=== PATIENT | female | born 1965 | race Caucasian/White ===

== ENCOUNTER 2016-10-23 03:57 | Emergency (ER) | payer OTHER ==
[~2016-10-23] VITALS: Ht 170.2 cm; Wt 87.0 kg
[~2016-10-23 03:57] MED LIST: HYDR-3580 PO; MOBI15TA PO; TAB-TAB PO
[2016-10-23 04:00] VITALS: BP 176/99; PULSE 142; RESP 16; TEMP 97.7; O2SAT 100
[2016-10-23 04:20] VITALS: BP 133/91; PULSE 114; RESP 22; TEMP 98.5; O2SAT 100
--- NOTE | 2016-10-23 04:22 | PD ---
HPI Chief Complaint: Cardiac Complaint Time Seen by Provider: 04:22 Travel History International Travel<30 days: No Contact w/Intl Traveler<30days: No Traveled to known affect area: No History of Present Illness HPI 51-year-old female came to the emergency room with history of palpitations that woke her up at 3:30 this morning. Patient seems anxious. She says she has had palpitations in the past which never lasted for to long. This time it has been the worst in lasted the longest and that's why she came to the emergency room. No history of chest pain, shortness of or any syncopal episode. No history of dizziness. Patient had a heart rate in her 120s to 130s. She does not drink alcohol, smoke cigarettes or any [id number] medication for cough and/or sinus. However she does take a lot of herbal supplements. PFSH Past Medical History Narrative Medical List of her past medical, surgical, social and family history was reviewed from the nursing note. Autoimmune Disease: Yes (Adam Kern) Cancer: No Cardiovascular Problems: No Diabetes: No Diminished Hearing: Yes (EARS ECHO) Endocrine: No Fibromyalgia: Yes Gastrointestinal Disorders: Yes (NAUSEA) Glaucoma: No Genitourinary: No Hepatitis: No Hiatal Hernia: No Hypertension: No Immune Disorder: No Medical other: Yes (BACK/NECK PROBLEMS, ARTHRITIS, PROBLEMS WITH NAUSEA/ VOMITTING) Musculoskeletal: Yes (ARTHRITIS, FIBROM., ) Neurologic: Yes (BACK AND NECK, Chronic fatique) Psychiatric: No Respiratory: Yes (HX PNEUMONIA) Immunizations Current: Yes Thyroid Disease: No Tetanus Vaccination: > 5 Years Influenza Vaccination: No ?: Not Menopausal: Yes Past Surgical History Abdominal Surgery: No Cardiac Surgery: No Ear Surgery: No Endocrine Surgery: No Eye Surgery: No Genitourinary Surgery: No Gynecologic Surgery: Yes (ENDOMETRIAL ABLATION) Neurologic Surgery: Yes (C6-C7 fusion, C7-T1 fusion, degenerative Disc) Oral Surgery: Yes (WISDOM TEETH EXTRACTION) Pacemaker: No Thoracic Surgery: Yes (cervicle discectomy w/ screws) Other Surgery: Yes Social History Alcohol Use: Yes (WINE SOME TIMES) Tobacco Use: No Substance Use: No Allergies-Medications (Allergen,Severity, Reaction): Coded Allergies: penicillin G (Unverified Allergy, Severe, Hives, 10/21/16) antioxidant multivitamin no.5 (Verified Adverse Reaction, Severe, Nausea/ Vomiting, 10/23/16) chondroitin sulfate A (Verified Adverse Reaction, Severe, Nausea/Vomiting , 10/23/16) glucosamine (Verified Adverse Reaction, Severe, Nausea/Vomiting, 10/23/16) Comments List of her allergies reviewed from the nursing note. Reported Meds & Prescriptions Reported Meds & Active Scripts Active Cardizem CD 24 HR (Diltiazem CD 24 HR) 120 Mg Caper 120 Mg PO DAILY Reported Hydrocodone-Acetaminophen 7.5-325 mg Tab 1 Tab PO Q6H PRN Stool Softener (Docusate Sodium) 100 Mg Cap Unknown Dose PO HS Fibercon (Calcium Polycarbophil) 625 Mg Tab 1,250 Mg PO HS Melatonin 1 Mg Tablet 6 Mg PO HS [iodine supplement] Unknown Dose PO HS [curamin] Unknown Dose PO HS Probiotic (Lactobacillus Acidophilus) 1 Cap Cap 1 Cap PO DAILY [steel labido] Unknown Dose PO DAILY [menosense] Unknown Dose PO BID [iodine supplement] Unknown Dose PO DAILY [curamin] Unknown Dose PO DAILY Fish Oil (Five Points-3 Fatty Acids) 1,000 Mg Cap Unknown Dose PO DAILY Narrative Medication List of her home medications reviewed from the nursing note. Review of Systems Except as stated in HPI: all other systems reviewed are Neg Physical Exam Narrative GENERAL: Awake, alert, anxious, moderate distress SKIN: Focused skin assessment warm/dry. Pale HEAD: Atraumatic. Normocephalic. EYES: Pupils equal and round. No scleral icterus. No injection or drainage. ENT: No nasal bleeding or discharge. Mucous membranes pink and moist. NECK: Trachea midline. No JVD. CARDIOVASCULAR: Irregularly irregular heart rate, tachycardia. No murmur appreciated. RESPIRATORY: No accessory muscle use. Clear to auscultation. Breath sounds equal bilaterally. GASTROINTESTINAL: Abdomen soft, non-tender, nondistended. Hepatic and splenic margins not palpable. MUSCULOSKELETAL: No obvious deformities. No clubbing. No cyanosis. No edema. NEUROLOGICAL: Awake and alert. No obvious cranial nerve deficits. Motor grossly within normal limits. Normal speech. PSYCHIATRIC: Appropriate mood and affect; insight and judgment normal. Data Data Last Documented VS Vital Signs Date Time Temp Pulse Resp B/P (MAP) Pulse Ox O2 Delivery O2 Flow Rate FiO2 10/23/16 05:15 67 16 127/88 (101) 100 Room Air 10/23/16 04:20 98.5 Orders Orders Electrocardiogram (10/23/16 04:26) Basic Metabolic Panel (Bmp) (10/23/16 04:26) Ckmb (Isoenzyme) Profile (10/23/16 04:26) Complete Blood Count With Diff (10/23/16 04:26) Magnesium (Mg) (10/23/16 04:26) Prothrombin Time / Inr (Pt) (10/23/16 04:26) Act Partial Throm Time (Ptt) (10/23/16 04:26) Troponin I (10/23/16 04:26) Chest, Single Ap (10/23/16 04:26) Ecg Monitoring (10/23/16 04:26) Bilateral Bp Monitoring (10/23/16 04:26) Iv Access Insert/Monitor (10/23/16 04:26) Oximetry (10/23/16 04:26) Oxygen Administration (10/23/16 04:26) Sodium Chloride 0.9% Flush (Ns Flush) (10/23/16 04:30) Thyroid Stimulating Hormone (10/23/16 04:26) Vital Signs (Adult) Q15MX4,Q4H (10/23/16 04:26) Pharmacist Aide / Telemetry CHARLIE.Q8H (10/23/16 04:26) Cardiac Rhythm CHARLIE.Q8H (10/23/16 04:26) Notify Dr: Other (10/23/16 04:26) Diltiazem Inj (Cardizem Inj) (10/23/16 04:30) Diltiazem Inj (Cardizem Inj) (10/23/16 04:30) Diltiazem (Cardizem) (10/23/16 05:00) Electrocardiogram (10/23/16 ) Labs Laboratory Tests Test 10/23/16 04:25 White Blood Count 10.2 TH/MM3 Red Blood Count 4.58 MIL/MM3 Hemoglobin 14.4 GM/DL Hematocrit 42.5 % Mean Corpuscular Volume 92.8 FL Mean Corpuscular Hemoglobin 31.4 PG Mean Corpuscular Hemoglobin Concent 33.8 % Red Cell Distribution Width 12.6 % Platelet Count 225 TH/MM3 Mean Platelet Volume 10.2 FL Neutrophils (%) (Auto) 46.8 % Lymphocytes (%) (Auto) 42.4 % Monocytes (%) (Auto) 8.2 % Eosinophils (%) (Auto) 2.0 % Basophils (%) (Auto) 0.6 % Neutrophils # (Auto) 4.8 TH/MM3 Lymphocytes # (Auto) 4.3 TH/MM3 Monocytes # (Auto) 0.8 TH/MM3 Eosinophils # (Auto) 0.2 TH/MM3 Basophils # (Auto) 0.1 TH/MM3 CBC Comment DIFF FINAL Differential Comment Prothrombin Time 10.2 SEC Prothromb Time International Ratio 0.9 RATIO Activated Partial Thromboplast Time 28.7 SEC Blood Urea Nitrogen 23 MG/DL Creatinine 0.69 MG/DL Random Glucose 94 MG/DL Calcium Level 9.4 MG/DL Magnesium Level 2.3 MG/DL Sodium Level 140 MEQ/L Potassium Level 4.2 MEQ/L Chloride Level 104 MEQ/L Carbon Dioxide Level 27.1 MEQ/L Anion Gap 9 MEQ/L Estimat Glomerular Filtration Rate 89 ML/MIN Total Creatine Kinase 89 U/L Troponin I LESS THAN 0.02 NG/ML Thyroid Stimulating Hormone 3rd Gen 2.780 uIU/ML MDM Medical Decision Making Medical Screen Exam Complete: Yes Emergency Medical Condition: Yes Medical Record Reviewed: Yes Interpretation(s) Twelve-lead EKG was reviewed by me. Atrial fibrillation, normal axis, RVR. Heart rate of 126 beats per minutes. Differential Diagnosis He wants it A. fib, ACS, hypothyroidism, electrolyte abnormalities Narrative Course 5:02 AM patient was given 20 mg of IV Cardizem bolus. Currently her heart rate is in the 70s. I've asked for repeat EKG to look at the rhythm. I have also ordered by mouth Cardizem. Blood test results are pending. 5:05 AM the repeat EKG shows a normal sinus rhythm, normal axis, nonspecific ST- T wave changes. Heart rate of 67 bpm. 5:36 AM all the blood test results of back and within normal limit. I will discharge her home on Cardizem. Procedures EKG Prior to Arrival: No Diagnosis Primary Impression: Paroxysmal atrial fibrillation Referrals: Primary Care Physician 2 days Additional Instructions: Please call your statistical reporting analyst to make an appointment with the next 2 days. Take the medication as per the prescription direction. Please return to the ER if the condition worsens or any other new concerns. Do not drink alcohol, caffeinated beverages, [id number] medications that are stimulants like allergy and sinus pills or smoke cigarettes. Med/Other Pt SpecificInfo: Prescription(s) given Scripts Diltiazem CD 24 HR (Cardizem CD 24 HR) 120 Mg Caper 120 MG PO DAILY, #30 CAP 0 Refills Prov: Karla Gerard MD 10/23/16 Disposition: 01 DISCHARGE HOME Condition: Stable Karla Gerard MD Oct 23, 2016 04:22
[2016-10-23] MEDS ORDERED: curamin PO ×2 (04:25→05:21)
[2016-10-23] MEDS ORDERED: FISH1000 PO (04:25)
[2016-10-23] MEDS ORDERED: IODINE SUPPLEMENT PO ×2 (04:25→05:21)
[2016-10-23] MEDS ORDERED: DILTIAZEM HCL 25 MG/5 ML VIAL IVP ONE (04:30)
[2016-10-23] MEDS ORDERED: DILTIAZEM INJ 125 MG in SODIUM CHLORIDE 0.9% INJ 100 ML IV SCH (04:30)
[2016-10-23] MEDS ORDERED: SODIUM CHLORIDE 0.9% FLUSH 10 ML FLUSH IVF PRN (04:30)
[2016-10-23 04:35] VITALS: O2SAT 100
[2016-10-23 04:36] VITALS: BP_SYST 128; BP_SYST 133; BP_DIAS 104; BP_DIAS 91; PULSE 100
[2016-10-23 04:51] LABS: AUTOMATED NEUTROPHIL # 4.8 TH/MM3 (1.8-7.7); BASOPHIL # 0.1 TH/MM3 (0-0.2); BASOPHIL % 0.6 % (0.0-2.0); EOSINOPHIL # 0.2 TH/MM3 (0-0.4); HEMATOCRIT 42.5 % (35.0-46.0); HEMO FLAGS DIFF FINAL; LYMPH % 42.4 % (9.0-44.0); LYMPHOCYTE # 4.3 TH/MM3 (1.0-4.8); MEAN CELL VOLUME 92.8 FL (80.0-100.0); MEAN CORPUSCULAR HEMOGLOBIN 31.4 PG (27.0-34.0); MEAN CORPUSCULAR HGB CONC 33.8 % (32.0-36.0); MONO % 8.2 % (0.0-8.0); NEUT % 46.8 % (16.0-70.0); PLATELET COUNT 225 TH/MM3 (150-450); RED BLOOD COUNT 4.58 MIL/MM3 (4.00-5.30); RED CELL DISTRIBUTION WIDTH 12.6 % (11.6-17.2); WHITE BLOOD COUNT 10.2 TH/MM3 (4.0-11.0)
[2016-10-23 05:00] LABS: APTT (PATIENT) 28.7 SEC (24.3-30.1); INTERNATIONAL NORMALIZED RATIO 0.9 RATIO; PROTHROMBIN TIME - PATIENT 10.2 SEC (9.8-11.6)
[2016-10-23] MEDS ORDERED: DILTIAZEM HCL 90 MG TAB PO ONE (05:00)
[2016-10-23 05:14] LABS: ANION GAP 9 MEQ/L (5-15); BICARBONATE 27.1 MEQ/L (21.0-32.0); BLOOD UREA NITROGEN 23 MG/DL (7-18); CHLORIDE 104 MEQ/L (98-107); GLOMERULAR FILTRATION RATE 89 ML/MIN (>89); MAGNESIUM 2.3 MG/DL (1.5-2.5); POTASSIUM 4.2 MEQ/L (3.5-5.1); SODIUM (NA) 140 MEQ/L (136-145)
--- NOTE | 2016-10-23 05:14 | RADRPT ---
EXAM DATE/TIME: 10/23/2016 05:00 [facility] COMPARISON: CHEST SINGLE AP, December 07, 2014, 14:15. INDICATIONS : Irregular heart rate for 2 hours MEDICAL HISTORY : None. SURGICAL HISTORY : None. ENCOUNTER: Initial ACUITY: 1 day PAIN SCORE: 0/10 LOCATION: Bilateral chest FINDINGS: A single view of the chest demonstrates the lungs to be symmetrically aerated without evidence of mas s, infiltrate or effusion. The cardiomediastinal contours are unremarkable. Osseous structures are intact. Anterior plate in the lower cervical spine. CONCLUSION: The lungs are clear. Alexandre Red MD on October 23, 2016 at 5:12 Board Certified Radiologist. This report was verified electronically.
[2016-10-23 05:15] VITALS: BP 127/88; PULSE 67; RESP 16; O2SAT 100
[2016-10-23] MEDS ORDERED: HYDR-3580 PO (05:21)
[2016-10-23] MEDS ORDERED: [UNRECOGNIZED DRUG - OTHER] PO (05:21)
[2016-10-23] MEDS ORDERED: STOO100C PO (05:21)
[2016-10-23] MEDS ORDERED: FIBE625T PO (05:21)
[2016-10-23] MEDS ORDERED: LACTCAP8 PO (05:21)
[2016-10-23] MEDS ORDERED: MELA1TAB32 PO (05:21)
[2016-10-23] MEDS ORDERED: [UNRECOGNIZED DRUG - OTHER] PO (05:21)
[2016-10-23 05:33] LABS: CREATINE KINASE 89 U/L (26-192)
[2016-10-23] MEDS ORDERED: CARD120C4 PO (05:38)
--- NOTE | 2016-10-23 08:58 | EKG ---
Date Performed: 10/23/2016 Time Performed: 05:01:14 PTAGE: 51 years EKG: Sinus rhythm NORMAL ECG PREVIOUS TRACING : 10/23/2016 04.19 compared to the previous EKG atrial fibrillation is no dangelo gris present DOCTOR: Andrew Butt Interpretating Date/Time 10/23/2016 08:54:19
--- NOTE | 2016-10-23 08:59 | EKG ---
Date Performed: 10/23/2016 Time Performed: 04:19:25 PTAGE: 51 years EKG: ATRIAL FIBRILLATION WITH RAPID VENTRICULAR RESPONSE NONSPECIFIC ST & T-WAVE ABNORMALITY ABN ORMAL ECG PREVIOUS TRACING : 12/07/2014 13.26 compared with previous EKG atrial fibrillation with rapid ventricular response is new DOCTOR: Andrew Butt Interpretating Date/Time 10/23/2016 08:55:20
== END 2016-10-23 06:02 | disposition home or self-care (01) ==
LOC: NEPE 03:57
DX: I48.0 Paroxysmal atrial fibrillation (principal); R00.2 Palpitations; I73.00 Raynaud's syndrome without gangrene; M79.7 Fibromyalgia; M13.88 Other specified arthritis, other site; Z79.899 Other long term (current) drug therapy; Z88.0 Allergy status to penicillin; Z88.8 Allergy status to other drugs, medicaments and biological substances
CPT/HCPCS: 71010; 80048; 82550; 83735; 84443; 84484; 85025; 85610; 85730; 93005; 96374